=== PATIENT | male | born 1985 | race Caucasian/White ===

== ENCOUNTER 2016-02-18 21:23 | Emergency (ER) | payer OTHER ==
[~2016-02-18] VITALS: Ht 180.3 cm; Wt 122.2 kg
[~2016-02-18 21:23] MED LIST: HYDR-5688 PO; IBUP-1450 PO
[2016-02-18 21:26] VITALS: TEMP 37.1; Ht 180.3 cm; Wt 122.2 kg
--- NOTE | 2016-02-18 22:11 | DIAGNOSTIC IMAGING REPORT ---
LEFT SHOULDER MIN 2 VIEWS ROUTINE CLINICAL HISTORY: Fall. Left shoulder injury trauma. Pain. COMPARISON: None. DISCUSSION: The bones and joint spaces appear intact. There is no evidence of fracture, dislocation or bony disease. There is no evidence for soft tissue swelling. IMPRESSION: Negative study. Electronically signed by: Jarrett Parham M.D. 02/18/2016 10:10 PM
--- NOTE | 2016-02-18 22:12 | DIAGNOSTIC IMAGING REPORT ---
LEFT FOREARM 2 VIEWS ROUTINE CLINICAL HISTORY: Fall. Left forearm injury trauma. Pain. COMPARISON: None. DISCUSSION: The bones and joint spaces appear intact. There is no evidence of fracture, dislocation or bony disease. There is no evidence for soft tissue swelling. IMPRESSION: Negative study. Electronically signed by: Jarrett Parham M.D. 02/18/2016 10:10 PM
[2016-02-18 22:46] VITALS: BP 151/105; PULSE 113; O2SAT 95
--- NOTE | 2016-02-18 23:16 | EMERGENCY ROOM VISIT NOTE ---
History First contact with patient: 21:29 Chief Complaint: SHOULDER PAIN Stated Complaint: LEFT SHOULDER PAIN History of Present Illness The patient is a 30 year old male who presents to the Emergency Room with complaints of left shoulder and left forearm pain after falling yesterday. The patient was walking around the edge of a large flower box that had railroad ties around it. The patient states the ground was wet, and that he slipped in the mud, landing onto one of the railroad ties. The patient did not strike his head or lose consciousness. He landed primarily onto his left forearm, and then onto his left shoulder. He initially did not have significant pain, and has been able to utilize the extremity without difficulty. The patient states that he went to bed last evening, and has had worsening pain over the past one day. He has not taken anything [id number] for his symptoms. He does not have history of previous fracture or dislocation of the left upper extremity. He does not have other complaints. He rates his discomfort a 7/10. No paresthesias. Review of Systems More than 10 systems were reviewed and otherwise negative with the exception of history of present illness. Past Medical/Surgical History Medical Problems: (1) Back pain (2) Benign hypertension (3) Chronic back pain (4) Dental caries (5) Dental infection (6) Fall (7) Folliculitis (8) Left hip pain (9) Left hip pain (10) Leg pain, left (11) Leg pain, left (12) Low back pain with sciatica (13) Low back pain with sciatica (14) Lumbar strain (15) Odontalgia (16) Pain, dental (17) Strain of thoracic spine (18) Tonsillectomy Family History No pertinent family history Social History Smoking Status: Current Every Day Smoker Alcohol Use: occasionally Drug Use: none Marital Status: in relationship Housing Status: lives with family Occupation Status: employed Current/Historical Medications Scheduled PRN Hydrocodone/Acetaminophen 5MG/325MG ([place] 5MG/325MG), 1-2 TABLETS PO Q6 PRN for Pain Ibuprofen (Motrin), 600 MG PO DIRECTED PRN for Pain Allergies Coded Allergies: No Known Allergies (Verified , 02/18/16) Physical Exam Vital Signs Date Time Temp Pulse Resp B/P Pulse Ox O2 Delivery O2 Flow Rate FiO2 02/18/16 22:46 113 16 151/105 95 02/18/16 21:26 37.1 130 18 172/101 98 Room Air Pain Rating (0-10): 6.0 Physical Exam VITALS: Vitals are noted on the nurse's note and reviewed by myself. Vital signs stable. GENERAL: Well-developed, well-nourished, white male, who is in no acute distress and resting comfortably. Patient is cooperative with the examination. HEAD: Normocephalic atraumatic. NECK: Supple without nuchal rigidity. No lymphadenopathy. No thyromegaly. Cervical spine is nontender. HEART: Regular rate and rhythm without murmurs gallops or rubs. LUNGS: Clear to auscultation bilaterally without wheezes, rales or rhonchi. No retractions or accessory muscle use. MUSCULOSKELETAL: Mild tenderness is appreciated over the left lateral clavicle into the lateral left deltoid. There is mild tenderness over the supraspinatus distribution. No ecchymosis or edema. The left elbow and left wrist are without tenderness. The patient has full sensation and range of motion distally. No snuffbox tenderness. There is mild tenderness over the proximal radius. Strength of the extremity is 5/5 with full range of motion. NEURO: Patient was alert and oriented to person place and time. CN II through XII grossly intact. Medical Decision & Procedures ER Provider Diagnostic Interpretation: LEFT FOREARM 2 VIEWS ROUTINE CLINICAL HISTORY: Fall. Left forearm injury trauma. Pain. COMPARISON: None. DISCUSSION: The bones and joint spaces appear intact. There is no evidence of fracture, dislocation or bony disease. There is no evidence for soft tissue swelling. IMPRESSION: Negative study. LEFT SHOULDER MIN 2 VIEWS ROUTINE CLINICAL HISTORY: Fall. Left shoulder injury trauma. Pain. COMPARISON: None. DISCUSSION: The bones and joint spaces appear intact. There is no evidence of fracture, dislocation or bony disease. There is no evidence for soft tissue swelling. IMPRESSION: Negative study. ED Course Physical exam and history were performed. Nursing notes and EMR were reviewed. Patient appears to have suffered a fall yesterday with subsequent injury to his left shoulder and left forearm. On examination the patient has some mild tenderness but no significant deformity or neurologic deficit. X-rays were performed of the left shoulder and left forearm, and do not show acute findings. Overall the patient does appear stable for discharge home. He will be given information for conservative measures and instructions to follow with orthopedics with any ongoing or persistent symptoms. He was otherwise invited back to the ER with any new, worsening, or concerning symptoms. The chart was completed utilizing [employer] Speech Voice Recognition Software. Grammatical errors, random word insertions, pronoun errors, and incomplete sentences are an occasional consequence of this system due to software limitations, ambient noise, and hardware issues. Any formal questions or concerns about the content, text, or information contained within the body of this dictation should be directly addressed to the provider for clarification. . Medical Decision Differential diagnosis includes, but is not limited to: Sprain, strain, fracture , dislocation, subluxation, contusion, and others Impression Primary Impression: Fall Additional Impressions: Injury of left forearm, Injury of left shoulder Departure Information Dispostion Home / Self-Care Condition GOOD Referrals Oliver Day D.O. Forms HOME CARE DOCUMENTATION FORM, IMPORTANT VISIT INFORMATION Patient Instructions A Signature Page, [facility] Additional Instructions You were seen and evaluated today on an emergency basis only. This is not a substitute for, or an effort to provide, complete comprehensive medical care. It is not possible to recognize and treat all injuries or illnesses in a single emergency department visit. For this reason it is recommended that you followup with orthopedics, Dr. Dya's office, with any ongoing or persistent symptoms. For baseline pain relief you may alternate ibuprofen and acetaminophen every 4 hours for pain control. Take 600 mg ibuprofen (Advil) and then 4 hours later take 1000 mg acetaminophen (Tylenol). Do not take more than 3000 mg acetaminophen in a single day. You are welcome to return to the emergency department anytime with new, worsening, or concerning symptoms.
== END 2016-02-18 22:46 | disposition home or self-care (01) ==
LOC: C.EDB 21:26 → C.EDD 22:46
DX: S59.912A Unspecified injury of left forearm, initial encounter (principal); S49.92XA Unspecified injury of left shoulder and upper arm, initial encounter; W19.XXXA Unspecified fall, initial encounter; F17.200 Nicotine dependence, unspecified, uncomplicated; I10 Essential (primary) hypertension

== ENCOUNTER 2016-03-05 01:30 | Emergency (ER) | payer OTHER ==
[~2016-03-05] VITALS: Ht 180.3 cm; Wt 126.1 kg
[2016-03-05 01:32] VITALS: TEMP 36.8; Ht 180.3 cm; Wt 126.1 kg
[2016-03-05] MEDS ORDERED: AMOXICILLIN 500 MG CAP PO STA (01:42)
[2016-03-05] MEDS ORDERED: OXYCODONE IR HOME PACK PO ONE (01:45)
[2016-03-05] MEDS ORDERED: AMOX500C3 PO (01:46)
[2016-03-05] MEDS ORDERED: OXYC1TAB3 PO (01:46)
[2016-03-05] MEDS ORDERED: AMOXICILLIN 250 MG CAP PO ONE (01:58)
[2016-03-05 02:09] VITALS: BP 160/104; PULSE 94; O2SAT 96
--- NOTE | 2016-03-05 04:57 | EMERGENCY ROOM VISIT NOTE ---
History First contact with patient: 01:35 Chief Complaint: DENTAL PAIN Stated Complaint: INFECTION ON ROOF OF MOUTH Nursing Triage Summary: left upper dental pain. "bubble under the roof of my mouth". started this am. History of Present Illness The patient is a 30 year old male who presents to the Emergency Room with complaints of left upper dental pain for the past day. Patient has poor dentition. He sees [facility]. Patient denies chest pain, dyspnea, fever , chills, nausea, vomiting, diarrhea, neck stiffness, dysphagia, facial swelling. He is tolerated by mouth fluids and food. Review of Systems See HPI for pertinent positives & negatives. A total of 10 systems reviewed and were otherwise negative. Past Medical/Surgical History Medical Problems: (1) Back pain (2) Benign hypertension (3) Chronic back pain (4) Dental caries (5) Dental infection (6) Fall (7) Folliculitis (8) Left hip pain (9) Left hip pain (10) Leg pain, left (11) Leg pain, left (12) Low back pain with sciatica (13) Low back pain with sciatica (14) Lumbar strain (15) Odontalgia (16) Pain, dental (17) Strain of thoracic spine (18) Tonsillectomy Social History Smoking Status: Current Every Day Smoker Alcohol Use: occasionally Drug Use: none Marital Status: in relationship Housing Status: lives with family Occupation Status: employed Current/Historical Medications Scheduled Amoxicillin (Amoxil), 500 MG PO TID Scheduled PRN Hydrocodone/Acetaminophen 5MG/325MG ([place] 5MG/325MG), 1-2 TABLETS PO Q6 PRN for Pain Ibuprofen (Motrin), 600 MG PO DIRECTED PRN for Pain Oxycodone Immediate Rel Tab (Roxicodone Ir), 1-2 TAB PO Q4H PRN for Severe Pain Allergies Coded Allergies: No Known Allergies (Verified , 02/18/16) Physical Exam Vital Signs Date Time Temp Pulse Resp B/P Pulse Ox O2 Delivery O2 Flow Rate FiO2 03/05/16 02:09 94 20 160/104 96 03/05/16 01:32 36.8 104 20 158/86 97 Room Air Pain Rating (0-10): 0 Physical Exam VITALS: Vitals are noted on the nurse's note and reviewed by myself. Vital signs hypertensive GENERAL: Pleasant male with tobacco odor, in no acute distress, nondiaphoretic, well-developed well-nourished. SKIN: The skin was without rashes, erythema, edema, or bruising. There is no tenting of the skin. Capillary reflex less than 2 seconds. HEAD: Normocephalic atraumatic. EARS: External auditory canals clear, tympanic membranes pearly mancilla without erythema or effusion bilaterally. EYES: Pupils equal round and reactive to light and accommodation. Conjunctivae without injection, sclerae without icterus. Extraocular movements intact. NOSE: Patent, turbinates without inflammation or discharge. No sinus tenderness. MOUTH: Mucous membranes moist. Pharynx without erythema or exudate. Uvula midline. Airway patent. Tongue does not deviate. No signs of Oracio angina Dental exam: Multiple missing teeth, left upper first molar with extensive dental decay with minimal gum swelling with no palpable abscess overall dental hygiene poor NECK: Supple without nuchal rigidity. No lymphadenopathy. No thyromegaly. Cervical spine is nontender. No JVD. No meningeal signs HEART: Regular rate and rhythm without murmurs gallops or rubs. LUNGS: Clear to auscultation bilaterally without wheezes, rales or rhonchi. No dullness to percussion. No retractions or accessory muscle use. ABDOMEN: Positive bowel sounds x 4. Normal tympanic percussion. Soft, nontender, without masses or organomegaly. Shah sign negative. No guarding or rebound tenderness. MUSCULOSKELETAL: No muscle atrophy, erythema, or edema noted. NEURO: Patient was alert and oriented to person place and time. Normal sensation to light and sharp touch. No focal neurological deficits. Medical Decision & Procedures Medications Administered Medications (Trade) Dose Ordered Sig/Santiago Route Start Time Stop Time Status Last Admin Dose Admin Oxycodone HCl (Roxicodone Immediate Rel 5MG Home Pack) 1 homepack UD ONCE PO 03/05/16 01:45 03/05/16 01:46 DC 03/05/16 02:06 1 HOMEPACK Amoxicillin (Amoxil Cap) 1,000 mg STK-MED ONCE PO 03/05/16 01:58 03/05/16 01:59 DC 03/05/16 02:06 1,000 MG ED Course Prior records reviewed and summarized as above. Triage Nursing notes reviewed. The patient's history was concerning for dental pain Differential diagnosis: Etiologies such as cellulitis, abscess, gingivitis, Oracio angina as well as others were entertained.. Physical examination: The physical examination was consistent with dental pain from dental caries ER treatment provided: Amoxicillin, OxyIR On reassessment the patient felt better. Diagnostics interpreted by me: Deferred This appears to be dental pain and dental caries. Patient was counseled on proper dental hygiene. He was started on antibiotics. He was advised to follow -up with dentistry for definitive care here in the ER sooner for high fevers, facial swelling, neck stiffness, worsening signs or symptoms or as needed. He was advised to monitor his blood pressure. He had no signs of Oracio angina on exam. He was well-appearing.. By the evaluation outlined above emergent etiologies such as abscess, Oracio angina, as well as others were deemed relatively unlikely. The pt informed about the findings as listed above. All questions were answered and pleased with the treatment. Return instructions were outlined and the patient was discharged in stable condition. Outpatient prescription management: Amoxicillin, OxyIR Referral: The patient was referred back to dentistry for follow-up in 2 to 3 days for a recheck of the current condition. Medical Decision As above [place] Drug Monitoring Program Search Results: patient reviewed within database, no issues identified Impression Primary Impression: Pain, dental Additional Impression: Dental caries Departure Information Dispostion Home / Self-Care Condition GOOD Prescriptions Oxycodone Immediate Rel Tab (ROXICODONE IR) 5 Mg Tab 1-2 TAB PO Q4H Y for Severe Pain, #15 TAB Prov: Romi Erazo .AGUSTIN 03/05/16 Amoxicillin (AMOXIL) 500 Mg Cap 500 MG PO TID for 10 Days, #30 CAP Prov: Romi Erazo .AGUSTIN 03/05/16 Forms HOME CARE DOCUMENTATION FORM, IMPORTANT VISIT INFORMATION Patient Instructions [facility], [facility] Additional Instructions Amoxicillin 500mg: Take one pill 3 times daily for 10 days for your infection. All antibiotics can cause diarrhea. If this occurs and you feel worse or it does not resolve in 1-2 days follow up with your doctor or return to the Emergency Department as this could be signs of serious underlying problems. Any medication can cause an allergic reaction, stop the pills immediately and return to the ER for rash, hives, breathing difficulties, or swelling. Oxycodone (OxyIR) 5mg: Take 1-2 pills every four hours for breakthrough pain. Avoid alcohol, operating machinery or dangerous equipment, working on ladders or roofs, DRIVING, or situations where being under the influence may be dangerous. It is recommended to use an brfq-[id number] stool softener such as Colace, 100mg twice daily while taking this medication to avoid constipation. Ibuprofen(Motrin, Advil) may be used for fever or pain. Use 600mg every six hours as needed. Take with food. Avoid using more than 2400mg in a 24 hour period. Do not use 2400mg per day for more than three consecutive days without physician direction. Prolonged inappropriate use can lead to stomach upset or ulcers. This medication can be taken if you need to drive, work, or perform activities which may be dangerous when taking narcotic pain medication. (AND/OR) Acetaminophen(Tylenol) may be used for fever or pain. Use 1000mg every six hours as needed. Avoid using more than 3000mg in a 24 hour period. This medication can be taken if you need to drive, work, or perform activities which may be dangerous when taking narcotic pain medication. [place] teeth twice a day, floss daily and do warm saltwater gargles 3 times a day. See a dentist as soon as possible for definitive care for your dental problem. Return to ER sooner for facial swelling, fever, redness, worsening signs or symptoms or as needed. Problem Qualifiers
== END 2016-03-05 02:14 | disposition home or self-care (01) ==
LOC: C.EDB 01:31
DX: K08.89 Other specified disorders of teeth and supporting structures (principal); K02.9 Dental caries, unspecified; F17.200 Nicotine dependence, unspecified, uncomplicated; I10 Essential (primary) hypertension; G89.29 Other chronic pain; M54.9 Dorsalgia, unspecified

== ENCOUNTER 2016-07-24 17:24 | Emergency (ER) | payer OTHER ==
[~2016-07-24] VITALS: Ht 180.3 cm; Wt 121.4 kg
[~2016-07-24 17:24] MED LIST changes: +OXYC1TAB3 PO
[2016-07-24 17:32] VITALS: Ht 180.3 cm; Wt 121.4 kg
[2016-07-24] MEDS ORDERED: PROPARACAINE HCL 0.5% OP SOLN 15 ML BTL OP STA (17:57)
[2016-07-24] MEDS ORDERED: AMLO-110 PO (18:11)
[2016-07-24] MEDS ORDERED: ERYOPO OPR (19:27)
--- NOTE | 2016-07-24 19:34 | EMERGENCY ROOM VISIT NOTE ---
ED Visit Note First contact with patient: 17:46 CHIEF COMPLAINT: Red, irritated eye HISTORY OF PRESENT ILLNESS: This 30-year-old male presents to the emergency department complaining of redness in the right eye which has gradually increased since Thursday. Mild constant pain, burning in nature, which is rated as 10/10. There is watery discharge from the right eye and the lids are crusted in the morning. No difficulty with vision. The patient not wear contacts. There is no known trauma to the eye. The patient has not had any other upper respiratory symptoms. The left eye is normal. The patient does not have a foreign body sensation. Patient states he was pressure washing his house Thursday evening, so wonders if he could've gotten dirty water in the eye. He denies experiencing discomfort, or foreign body sensation Thursday evening. No headache, rash, nausea or vomiting. Patient was seen earlier this week at an urgent care and prescribed tobramycin drops. He has been using these drops as prescribed, and he states he feels that his discomfort is worsening. Redness has not improved. He has also been using hot/cold compresses, and wearing sunglasses due to sensitivity to light. He did take 800 mg ibuprofen around 8: 00 this morning with minimal improvement in discomfort. REVIEW OF SYSTEMS: A 6 system review of systems was completed with positives and pertinent negatives in the HPI. ALLERGIES: None MEDICATIONS: Norvasc, which he has been out of for 2 days PMH: Hypertension SOCIAL HISTORY: Patient lives locally with his family. He admits to smoking one half pack cigarettes per day, reports occasional alcohol use, denies drug use. PHYSICAL EXAM: Vital Signs: Reviewed Nurse's notes, vital signs stable, patient is not febrile. GENERAL: 30-year-old male, in no acute distress, well-developed , well-nourished. SKIN: Warm, dry. No cyanosis. No petechia. EYES: Both pupils are equal round and reactive to light and accomadation, EOMs intact. There is watery discharge in the right eye and moderate injection. There is no foreign body of the eyelid with lid eversion. Fundoscopic exam reveals no hemorrages, papiledema, or other abnormalities. No foreign body on the cornea, no hyphema. No uptake of flourescein visible with UV light. No corneal abrasion and no corneal ulcer. Visual Accuity is 20/20 right and 20/20 left without correction. EMERGENCY DEPARTMENT COURSE: I examined the patient. A slit lamp exam was performed and is as described above. Two drops of Ciloxin were put in the right eye and the patient was instructed as noted below. The patient was discharged home in good condition. DIAGNOSIS: Acute conjunctivitis DISCHARGE INSTRUCTIONS: You have been prescribed Erythromycin Opthalmic ointment. This is an antibiotic ointment which will help treat the acute and help prevent an infection from developing in your affected eye. You should apply a 1 cm ribbon of the ointment to the lower part of the affected eye up to 6 times per day for the next 10 days. I suspect this is a an acute conjunctivitis, related to getting dirty water in your eye while pressure washing on Thursday. Also considered sensitivity to Tobramycin drops. Please discontinue the use of these drops. Use the erythromycin ointment until you're able to follow up with ophthalmology. Recommend follow-up with ophthalmology in 1-2 days for further evaluation and management of your infection. Follow-up sooner in the emergency department if you experience increased redness , purulent drainage, swelling or redness surrounding the eye, fever, chills, nausea, vomiting. Problem List Medical Problems: (1) Back pain Status: Resolved (2) Benign hypertension Status: Chronic (3) Chronic back pain Status: Chronic (4) Dental caries Status: Chronic (5) Dental infection Status: Chronic (6) Fall Status: Resolved (7) Folliculitis Status: Resolved (8) Left hip pain Status: Resolved (9) Left hip pain Status: Resolved (10) Leg pain, left Status: Resolved (11) Leg pain, left Status: Resolved (12) Low back pain with sciatica Status: Resolved (13) Low back pain with sciatica Status: Resolved (14) Lumbar strain Status: Resolved (15) Odontalgia Status: Chronic (16) Pain, dental Status: Resolved (17) Strain of thoracic spine Status: Resolved (18) Tonsillectomy Status: Resolved Current/Historical Medications Scheduled Amlodipine (Norvasc), 5 MG PO DAILY Erythromycin Opth (Erythromycin Opth), 1 CM OPR Q4 Allergies Coded Allergies: No Known Allergies (Verified , 07/24/16) Vital Signs Date Time Temp Pulse Resp B/P (MAP) Pulse Ox O2 Delivery O2 Flow Rate FiO2 07/24/16 17:32 36.9 119 17 159/90 95 Room Air Medications Administered Medications (Trade) Dose Ordered Sig/Santiago Route Start Time Stop Time Status Last Admin Dose Admin Proparacaine HCl (Alcaine 0.5% Oph Soln) 2 drops NOW STAT OP 07/24/16 17:57 07/24/16 17:59 DC 07/24/16 18:06 2 DROPS Departure Information Impression Primary Impression: Conjunctivitis Dispostion Home / Self-Care Condition GOOD Prescriptions Erythromycin Opth (ERYTHROMYCIN OPTH) 12 Appln/3.5 Gm Oint 1 CM OPR Q4 for eye infection for 7 Days, #1 TUBE Prov: Ani Walker PA-C 07/24/16 Referrals No Doctor, Assigned (PCP) Patient Instructions My [facility] Additional Instructions You have been prescribed Erythromycin Opthalmic ointment. This is an antibiotic ointment which will help treat the acute and help prevent an infection from developing in your affected eye. You should apply a 1 cm ribbon of the ointment to the lower part of the affected eye up to 6 times per day for the next 10 days. I suspect this is a an acute conjunctivitis, related to getting dirty water in your eye while pressure washing on Thursday. Also considered sensitivity to Tobramycin drops. Please discontinue the use of these drops. Use the erythromycin ointment until you're able to follow up with ophthalmology. Recommend follow-up with ophthalmology in 1-2 days for further evaluation and management of your infection. Follow-up sooner in the emergency department if you experience increased redness , purulent drainage, swelling or redness surrounding the eye, fever, chills, nausea, vomiting. Problem Qualifiers Primary Impression: Conjunctivitis Conjunctivitis type: acute Acute conjunctivitis type: bacterial Laterality : right Qualified Codes: H10.31 - Unspecified acute conjunctivitis, right eye
[2016-07-24 20:52] VITALS: BP 140/80; PULSE 100; TEMP 36.9; O2SAT 98
== END 2016-07-24 20:54 | disposition home or self-care (01) ==
LOC: C.EDB 17:24 → C.EDD 20:54
DX: H10.31 Unspecified acute conjunctivitis, right eye (principal); I10 Essential (primary) hypertension; Z79.899 Other long term (current) drug therapy; Z87.898 Personal history of other specified conditions; F17.200 Nicotine dependence, unspecified, uncomplicated

== ENCOUNTER 2016-11-19 18:31 | Emergency (ER) | payer OTHER ==
[~2016-11-19] VITALS: Ht 180.3 cm; Wt 120.9 kg
[~2016-11-19 18:31] MED LIST changes: +AMLO-110 PO; +ERYOPO OPR; -HYDR-5688 PO; -IBUP-1450 PO; -OXYC1TAB3 PO
[2016-11-19 19:00] VITALS: TEMP 37; Ht 180.3 cm; Wt 120.9 kg
--- NOTE | 2016-11-19 21:26 | DIAGNOSTIC IMAGING REPORT ---
ABDOMEN 2VIEW W/PA CHEST RTN HISTORY: 31 years-old Male lower abd pain acute lower abdominal pain. Initial exam. COMPARISON: CT abdomen and pelvis 02/13/2012 TECHNIQUE: Frontal view of the chest with erect and supine views of the abdomen FINDINGS: Cardiomediastinal and hilar silhouettes are within normal limits. There is no pneumothorax, pleural effusion, focal airspace consolidation or overt pulmonary edema. Bones of the chest are grossly intact. No pneumoperitoneum identified. The bowel gas pattern is nonobstructive. No organomegaly, urolith or fracture identified. IMPRESSION: 1. No acute cardiopulmonary process. 2. Nonobstructive bowel gas pattern without pneumoperitoneum. 3. No urolith. The above report was generated using voice recognition software. It may contain grammatical, syntax or spelling errors. Electronically signed by: Yogi Tejeda M.D. 11/19/2016 9:25 PM Dictated Date/Time: 11/19/2016 9:23 PM
[2016-11-19 22:06] LABS: BASO % 0.1 %; BASO ABS # 0.02 K/uL (0-0.2); COMPLETE YES; EOS % 1.3 %; HEMATOCRIT 47.8 % (42-52); IG% 0.3 %; LYMPH % 21.3 %; LYMPH ABS # 2.85 K/uL (1.2-3.4); MEAN CELL VOLUME 85.2 fL (80-100); MEAN CORPUSCULAR HGB CONC 32.8 g/dl (32-36); MEAN PLATELET VOLUME 9.1 fL (7.4-10.4); MONO % 5.4 %; NEUT % 71.6 %; PLATELET COUNT 365 K/uL (130-400); RED BLOOD COUNT 5.61 M/uL (4.7-6.1)
[2016-11-19 22:15] LABS: MANUAL MICROSCOPIC REQUIRED? NO; URINE APPEARANCE CLEAR (CLEAR); URINE BILIRUBIN NEG (NEG); URINE COLOR YELLOW; URINE NITRITE NEG (NEG); URINE PH 5.5 (4.5-7.5); URINE SPECIFIC GRAVITY 1.025 (1.000-1.030); UROBILINOGEN NEG (NEG)
[2016-11-19 22:23] LABS: BUN/CREATININE RATIO 9.8 (10-20); CALCIUM 9.3 mg/dl (8.5-10.1); POTASSIUM 3.7 mmol/L (3.5-5.1)
[2016-11-19 22:25] LABS: REVIEW REQ? NO
[2016-11-19 22:26] LABS: ALB/GLOB RATIO 0.8 (0.9-2)
--- NOTE | 2016-11-19 23:27 | DIAGNOSTIC IMAGING REPORT ---
ABD/PELVIS NO IV OR ORAL CONT HISTORY: 31 years-old Male lower abd pain acute lower abdominal pain. Initial exam. COMPARISON: CT 02/13/2012 TECHNIQUE: Multiple axial CT images of the abdomen and pelvis were obtained without contrast. A dose lowering technique was used consistent with the principals of CRISTOBAL. FINDINGS: Mild dependent bibasilar atelectasis. No pneumoperitoneum identified. The imaged inferior cardiac chambers are unremarkable. Hepatomegaly is noted with areas of geographic fatty infiltration. Spleen, pancreas, gallbladder and adrenal glands are within normal limits. Kidneys, ureters, urinary bladder and prostate are unremarkable. The abdominal aorta is normal in course and caliber. No bulky adenopathy. There is no bowel obstruction. Moderate wall thickening with surrounding inflammatory stranding involves the mid sigmoid colon where there is a focally inflamed diverticulum draining hyperattenuating material seen on image 365 series 3. No abscess or evidence of perforation. The appendix is normal. Soft tissues are unremarkable. Symmetric erosions involve the bilateral sacroiliac joints. Additionally, there is increased sclerosis involving the anterosuperior endplates of the thoracic spine and upper lumbar spine, seen most prominently at the T9-L1 levels, nicely demonstrated on the sagittal images. IMPRESSION: 1. Findings suggest acute uncomplicated sigmoid diverticulitis. 2. Symmetric erosions of the bilateral sacroiliac joints are noted in addition to increased sclerosis involving the anterosuperior endplates of the thoracic and upper lumbar spine, notably at T9-L1. Constellation of findings is very suspicious for ankylosing spondylitis with reactive sclerosis of the vertebral bodies (Romanus lesions). 3. Hepatomegaly with geographic fatty infiltration of the liver. The above report was generated using voice recognition software. It may contain grammatical, syntax or spelling errors. Electronically signed by: Yogi Tejeda M.D. 11/19/2016 11:26 PM Dictated Date/Time: 11/19/2016 11:18 PM
[2016-11-19] MEDS ORDERED: METRONIDAZOLE 250 MG TAB PO STA (23:37)
[2016-11-19] MEDS ORDERED: CIPROFLOXACIN 500 MG TAB PO STA (23:37)
--- NOTE | 2016-11-19 23:37 | EMERGENCY ROOM VISIT NOTE ---
History Report prepared by Jeri: Tate Payton Under the Supervision of: Dr. Urvashi Bledsoe D.O. First contact with patient: 20:09 Chief Complaint: CONSTIPATION Stated Complaint: LOWER BELLY PAIN/WAIST LINE SHARP PAIN Nursing Triage Summary: no bm for several days. took laxatives without results. +nausea. lower abdominal pain. History of Present Illness The patient is a 31 year old male who presents to the Emergency Room with complaints of constant lower abdominal pain for the past day and a half. He describes it as a sharp pain when walking around and as a pressure when his abdomen is pushed. Patient states that he feels bloated. He states that his pain stays in his abdomen and that he has no pain in his back. He denies pain anywhere else or pain when he changes position. He also denies nausea or changes in his urine. He states that he rarely passes gas. Patient states that he gets hot and cold flashes. Pt has been constipated before but not like this. He took two laxatives yesterday and one today but denies any improvement. His last bowel movement was yesterday. He states that he drinks water regularly. The patient denies changes to his diet, or medications. Per friend, the patient exhibits IBS symptoms Source of History: patient Onset: A day and a half ago. Position: abdomen (Lower.) Quality: pressure, sharp Timing: constant Modifying Factors (Worsening): exertion Associated Symptoms: No back pain Note: Additional symptoms: abdominal bloating. Review of Systems See HPI for pertinent positives & negatives. A total of 10 systems reviewed and were otherwise negative. Past Medical & Surgical Medical Problems: (1) Back pain (2) Benign hypertension (3) Chronic back pain (4) Dental caries (5) Dental infection (6) Fall (7) Folliculitis (8) Left hip pain (9) Left hip pain (10) Leg pain, left (11) Leg pain, left (12) Low back pain with sciatica (13) Low back pain with sciatica (14) Lumbar strain (15) Odontalgia (16) Pain, dental (17) Strain of thoracic spine (18) Tonsillectomy Family History No pertinent family history stated. Social History Smoking Status: Current Every Day Smoker Alcohol Use: occasionally Drug Use: none Marital Status: in relationship Housing Status: lives with family Occupation Status: employed Current/Historical Medications Scheduled Ciprofloxacin Hcl (Cipro), 500 MG PO BID Dicyclomine Hcl (Bentyl), 20 MG PO TID Metronidazole (Flagyl), 500 MG PO TID Allergies Coded Allergies: No Known Allergies (Verified , 11/19/16) Physical Exam Vital Signs Date Time Temp Pulse Resp B/P (MAP) Pulse Ox O2 Delivery O2 Flow Rate FiO2 11/19/16 23:48 105 18 157/82 97 Room Air 11/19/16 22:36 115 18 153/93 99 Room Air 11/19/16 20:47 111 18 143/91 98 Room Air 11/19/16 19:00 37.0 125 20 135/82 96 Room Air Physical Exam GENERAL: alert, well appearing, well nourished, no distress, non-toxic EYE EXAM: normal conjunctiva, PERRL and EOM's grossly intact OROPHARYNX: no exudate, no erythema, lips, buccal mucosa, and tongue normal and mucous membranes are moist NECK: supple, no nuchal rigidity, no adenopathy, non-tender LUNGS: Clear to auscultation. Normal chest wall mechanics HEART: no murmurs, S1 normal and S2 normal ABDOMEN: mild lower abdominal tenderness, dull to percussion, no rebound or guarding. BACK: Back is symmetrical on inspection and there is no deformity, no midline tenderness, no CVA tenderness. SKIN: no rashes and no bruising UPPER EXTREMITIES: upper extremities are grossly normal. LOWER EXTREMITIES: No pitting edema. NEURO EXAM: Normal sensorium, cranial nerves II-XII grossly intact, normal speech, no gross weakness of arms, no gross weakness of legs. Medical Decision & Procedures ER Provider Diagnostic Interpretation: ABD/PELVIS NO IV OR ORAL CONT HISTORY: 31 years-old Male lower abd pain acute lower abdominal pain. Initial exam. COMPARISON: CT 02/13/2012 TECHNIQUE: Multiple axial CT images of the abdomen and pelvis were obtained without contrast. A dose lowering technique was used consistent with the principals of CRISTOBAL. FINDINGS: Mild dependent bibasilar atelectasis. No pneumoperitoneum identified. The imaged inferior cardiac chambers are unremarkable. Hepatomegaly is noted with areas of geographic fatty infiltration. Spleen, pancreas, gallbladder and adrenal glands are within normal limits. Kidneys, ureters, urinary bladder and prostate are unremarkable. The abdominal aorta is normal in course and caliber. No bulky adenopathy. There is no bowel obstruction. Moderate wall thickening with surrounding inflammatory stranding involves the mid sigmoid colon where there is a focally inflamed diverticulum draining hyperattenuating material seen on image 365 series 3. No abscess or evidence of perforation. The appendix is normal. Soft tissues are unremarkable. Symmetric erosions involve the bilateral sacroiliac joints. Additionally, there is increased sclerosis involving the anterosuperior endplates of the thoracic spine and upper lumbar spine, seen most prominently at the T9-L1 levels, nicely demonstrated on the sagittal images. IMPRESSION: 1. Findings suggest acute uncomplicated sigmoid diverticulitis. 2. Symmetric erosions of the bilateral sacroiliac joints are noted in addition to increased sclerosis involving the anterosuperior endplates of the thoracic and upper lumbar spine, notably at T9-L1. Constellation of findings is very suspicious for ankylosing spondylitis with reactive sclerosis of the vertebral bodies (Romanus lesions). 3. Hepatomegaly with geographic fatty infiltration of the liver. The above report was generated using voice recognition software. It may contain grammatical, syntax or spelling errors. Electronically signed by: Yogi Tejeda M.D. 11/19/2016 11:26 PM Laboratory Results 11/19/16 21:55 Red Blood Count 5.61, Mean Corpuscular Volume 85.2, Mean Corpuscular Hemoglobin 28.0, Mean Corpuscular Hemoglobin Concent 32.8, Mean Platelet Volume 9.1, Neutrophils (%) (Auto) 71.6, Lymphocytes (%) (Auto) 21.3, Monocytes (%) (Auto) 5.4, Eosinophils (%) (Auto) 1.3, Basophils (%) (Auto) 0.1, Neutrophils # (Auto) 9.59, Lymphocytes # (Auto) 2.85, Monocytes # (Auto) 0.72, Eosinophils # (Auto) 0.18, Basophils # (Auto) 0.02 11/19/16 21:55 Test 11/19/16 21:45 11/19/16 21:55 Urine Color YELLOW Urine Appearance CLEAR (CLEAR) Urine pH 5.5 (4.5-7.5) Urine Specific [place] 1.025 (1.000-1.030) Urine Protein NEG (NEG) Urine Glucose (UA) NEG (NEG) Urine Ketones NEG (NEG) Urine Occult Blood NEG (NEG) Urine Nitrite NEG (NEG) Urine Bilirubin NEG (NEG) Urine Urobilinogen NEG (NEG) Urine Leukocyte Esterase NEG (NEG) White Blood Count 13.40 K/uL (4.8-10.8) Red Blood Count 5.61 M/uL (4.7-6.1) Hemoglobin 15.7 g/dL (14.0-18.0) Hematocrit 47.8 % (42-52) Mean Corpuscular Volume 85.2 fL (80-100) Mean Corpuscular Hemoglobin 28.0 pg (25-34) Mean Corpuscular Hemoglobin Concent 32.8 g/dl (32-36) Platelet Count 365 K/uL (130-400) Mean Platelet Volume 9.1 fL (7.4-10.4) Neutrophils (%) (Auto) 71.6 % Lymphocytes (%) (Auto) 21.3 % Monocytes (%) (Auto) 5.4 % Eosinophils (%) (Auto) 1.3 % Basophils (%) (Auto) 0.1 % Neutrophils # (Auto) 9.59 K/uL (1.4-6.5) Lymphocytes # (Auto) 2.85 K/uL (1.2-3.4) Monocytes # (Auto) 0.72 K/uL (0.11-0.59) Eosinophils # (Auto) 0.18 K/uL (0-0.5) Basophils # (Auto) 0.02 K/uL (0-0.2) RDW Standard Deviation 41.0 fL (36.4-46.3) RDW Coefficient of Variation 13.2 % (11.5-14.5) Immature Granulocyte % (Auto) 0.3 % Immature Granulocyte # (Auto) 0.04 K/uL (0.00-0.02) Anion Gap 7.0 mmol/L (3-11) Est Creatinine Clear Calc Drug Dose 140.3 ml/min Estimated GFR () 114.9 Estimated GFR (Non- 99.1 BUN/Creatinine Ratio 9.8 (10-20) Calcium Level 9.3 mg/dl (8.5-10.1) Total Bilirubin 0.5 mg/dl (0.2-1) Aspartate Amino Transf (AST/SGOT) 19 U/L (15-37) Alanine Aminotransferase (ALT/SGPT) 45 U/L (12-78) Alkaline Phosphatase 138 U/L (45-117) Total Protein 8.6 gm/dl (6.4-8.2) Albumin 3.8 gm/dl (3.4-5.0) Globulin 4.8 gm/dl (2.5-4.0) Albumin/Globulin Ratio 0.8 (0.9-2) Lipase 96 U/L (73-393) Medications Administered Medications (Trade) Dose Ordered Sig/[place] Route Start Time Stop Time Status Last Admin Dose Admin Ciprofloxacin (Cipro Tab) 500 mg NOW STAT PO 11/19/16 23:37 11/19/16 23:39 DC 11/19/16 23:47 500 MG Metronidazole (Flagyl Tab) 500 mg NOW STAT PO 11/19/16 23:37 11/19/16 23:39 DC 11/19/16 23:47 500 MG Ketorolac Tromethamine (Toradol Inj) 30 mg NOW STAT IV 11/19/16 23:53 11/19/16 23:54 DC 11/19/16 23:57 30 MG Dicyclomine HCl (Bentyl Cap) 10 mg NOW ONCE PO 11/20/16 00:00 11/20/16 00:01 DC 11/19/16 23:57 10 MG ED Course 2010: The patient was evaluated in room C10. A complete history and physical exam was performed. 2345: Updated patient on all results. Medical Decision Differential diagnosis: Etiologies such as appendicitis, diverticulitis, PUD, biliary pathology, UTI, pancreatitis, obstruction, mesenteric ischemia, aortic pathology, infections, inflammatory bowel disease, renal colic, as well as others were entertained. Pt well appearing here despite complaints. Discussed all results. No perf/ abscess, no evidence of bacteremia/sepsis. Pt afebrile and tolerating po. Discussed antibiotics, f/u with PCP and with GI, need for colonoscopy after resolution, dietary changes, hydration, sx to watch/return for, he verbalized understanding and was agreeable with plan. Medication Reconcilliation Current Medication List: was personally reviewed by me Blood Pressure Screening Patient's blood pressure: Elevated blood pressure Blood pressure disposition: Elevated BP felt to be situational Impression Primary Impression: Abdominal pain Additional Impressions: Diverticulitis Constipation Scribe Attestation The scribe's documentation has been prepared under my direction and personally reviewed by me in its entirety. I confirm that the note above accurately reflects all work, treatment, procedures, and medical decision making performed by me. Departure Information Dispostion Home / Self-Care Prescriptions Metronidazole (FLAGYL) 500 Mg Tab 500 MG PO TID for 10 Days, #30 TAB Prov: Rakan Urvashi S., DO 11/20/16 Ciprofloxacin Hcl (CIPRO) 500 Mg Tab 500 MG PO BID, #20 TAB Prov: Urvashi Bledsoe, DO 11/20/16 Dicyclomine Hcl (BENTYL) 20 Mg Tab 20 MG PO TID for Pain, #20 TAB Prov: Urvashi Bledsoe, DO 11/20/16 Referrals No Doctor, Assigned (PCP) Patient Instructions My [facility] Additional Instructions Please take the antibiotics as prescribed until they are completed. Please eat a low fiber diet until you have completed the course of antibiotics. After that please resume a well-balanced high-fiber diet. Please follow up with her family doctor next week and then with GI. If you have any worsening pain, develop fevers or chills, vomiting, noticed blood with the bowel movement, or any other new concerns, please return the emergency room. Please consider the addition of a stool softener to help prevent any prolonged sitting or increased straining when having a bowel movement as this can contribute to the development of diverticulosis. Problem Qualifiers Primary Impression: Abdominal pain Abdominal location: lower abdomen, unspecified Qualified Codes: R10.30 - Lower abdominal pain, unspecified Additional Impressions: Diverticulitis Diverticulitis site: large intestine Diverticulitis bleeding: without bleeding Diverticulitis complication: without perforation or abscess Qualified Codes: K57.32 - Diverticulitis of large intestine without perforation or abscess without bleeding Constipation Constipation type: unspecified constipation type Qualified Codes: K59.00 - Constipation, unspecified
[2016-11-19 23:48] VITALS: BP 157/82; PULSE 105; O2SAT 97
[2016-11-19] MEDS ORDERED: KETOROLAC TROMETHAMINE 30 MG/ML VIAL IV STA (23:53)
[2016-11-20] MEDS ORDERED: DICY20TA35 PO
[2016-11-20] MEDS ORDERED: METR500T PO
[2016-11-20] MEDS ORDERED: CIPR-255 PO
[2016-11-20] MEDS ORDERED: DICYCLOMINE HCL 10 MG CAP PO ONE
== END 2016-11-20 00:07 | disposition home or self-care (01) ==
LOC: C.EDB 18:32 → C.EDC 11-20 00:07
DX: R10.30 Lower abdominal pain, unspecified (principal); K57.32 Diverticulitis of large intestine without perforation or abscess without bleeding; K59.00 Constipation, unspecified; I10 Essential (primary) hypertension; M54.9 Dorsalgia, unspecified; G89.29 Other chronic pain; F17.210 Nicotine dependence, cigarettes, uncomplicated

== ENCOUNTER 2023-08-04 09:08 | Inpatient (IN) ==
[2023-08-04] MEDS: dilTIAZem HCl 5 MG/ML 5 ML VIAL IV STA (09:30)
[2023-08-04] MEDS: SODIUM CHLORIDE 0.9% 1,000 ML IV ONE (09:31)
--- NOTE | 2023-08-04 09:32 | Emergency Department Note ---
Impression & Plan Atrial fibrillation with rapid ventricular response, Shortness of breath ED Provider Note NAME: JAYSON WHELAN AGE: 37 SEX: M : 1985 ARRIVES VIA: Walk-In INFORMANT: Patient ED PROVIDER(S): Audie Rooney DO CHIEF COMPLAINT: Palpitations HPI: Patient is a 38-year-old male with a past medical history of palpitations and some chest pounding which started about an hour prior to arrival. He notes he was at work and can feel his heart racing and beating irregularly. He did have some shortness of breath initially when it started. He has had this once before and it last for several seconds. Denies any headache or change in vision. No chest pain or shortness of breath. No nausea, vomiting, or diarrhea. No dysuria, urgency or frequency. ADDITIONAL HISTORY OBTAINED: Per HPI Chronic Medical/Social Conditions Affecting Care: Per HPI PAST MEDICAL HISTORY:See Below PAST SURGICAL HISTORY:See Below FAMILY HISTORY:See Below SOCIAL HISTORY:See Below HOME MEDICATIONS:See Below ALLERGIES:See Below VITALS:See Below PHYSICAL EXAMINATION: GENERAL: Sitting up in bed, alert, well appearing, well nourished, no distress, non-toxic EYE EXAM: normal conjunctiva. PERRL and EOM's grossly intact. OROPHARYNX: mucous membranes are moist NECK: supple, no nuchal rigidity, no adenopathy, non-tender LUNGS: Clear to auscultation. Normal chest wall mechanics HEART: Tachycardic and irregular regular, S1 normal and S2 normal ABDOMEN: abdomen soft, non-tender, normo-active bowel sounds, no masses, no rebound or guarding. UPPER EXTREMITIES: upper extremities are grossly normal. LOWER EXTREMITIES: No pitting edema. NEURO EXAM: Normal sensorium, cranial nerves II-XII grossly intact, normal speech, no gross weakness of arms, no gross weakness of legs. MEDICAL DECISION MAKING: Patient is a 37-year-old male who presents ER for palpitations accommodation with chest pain. IV was established blood work was obtained. Labs show mild leukocytosis of 10.8 thousand. No significant anemia. BMP with slightly elevated chloride at 108. LFTs bilirubin and magnesium was unremarkable. Initial troponin was negative. Chest x-ray was clean. EKG consistent with A- fib with RVR heart rate in the 170s. Was placed on Cardizem drip and bolus. He was given a bolus of 15 and placed on drip at 5 of Cardizem. 5 mg was titrated up to 10. Heart rate trended down to the low 1 teens. He was updated bedside discussed with the hospitalist for further evaluation management treatment. Consults/Care Managements Discussions: Per [facility] Triage Nursing notes reviewed. Limited review of prior medical records performed Vital Signs: reviewed and remarkable for HTN and tachy Differential diagnosis: Differential diagnoses includes but is not limited to gastritis, peptic ulcer disease, GERD, gallbladder disease, pancreatitis, small bowel obstruction, appendicitis, diverticulitis, hernia, urinary tract infection, torsion, perforation, trauma, infectious. ER treatment provided: See below Diagnostics interpreted by me include EKG and cardiac monitoring as listed below: -Cardiac Monitoring: An order was placed for continuous cardiac monitoring. The monitor shows a rate of 90 with sinus rhythm. -ECG: A-fib RVR rate of 166 Normal axis No PVCs ST depressions in the inferior and lateral leads QTc 422 -Laboratory studies:Interpreted by me as stated above in MDM and shown below. Imaging studies: Xrays: As interpreted by me: Portable AP upright 1 view of the chest shows no focal infiltrate CTs show: none Procedures:none Critical Care: I have personally spent 45 minutes of critical care time in the direct management of this patient. This includes bedside care, interpretation of diagnostic studies, and testing, discussion with consultants, patient, and family members, and other required patient management activities. This 45 minutes is in excess of all separately billable procedures. Past Med/Surg History Problem List (Updated 08/04/23 @ 13:53 by Audie Rooney DO) Shortness of breath (Acute) Atrial fibrillation with rapid ventricular response (Acute) No significant past medical history Encounter for screening laboratory testing for severe acute respiratory syndrome coronavirus 2 (SARS-CoV-2) in asymptomatic patient Elevated BP without diagnosis of hypertension Medical History Dental abscess Surgical History H/O tooth extraction Hx of tonsillectomy Family History Mother Ovarian cancer Denies family history of Prostate cancer Breast cancer Lung cancer Colorectal cancer Social History Smoking Status: Former smoker Tobacco Type: Cigarettes Age Started Using Tobacco: 14; packs per day: 0.5; Second Hand Exposure: No; Do You Dip or Chew Tobacco: No; Hx Alcohol Use: Yes Alcohol type: beer Alcohol Intake Frequency: Monthly or Less Hx Substance Use: No Preferred Language: Maltese Communication Ability: Effective Visual Impairment: No Limitations Hearing Ability: Normal Chemist Water Purification Required: No marital status: Single Current Living Situation: Family and Significant Other current occupational status: employed How many Children do You have: 4 Feels Safe at Home: Yes Childhood Exposure to Second-Hand Smoke: Yes caffeine: Yes Dental Care, Regularly: No Physical Activity Frequency: 3-4 Times per Week Seatbelt Use: always Sunscreen Use: No Allergies Allergies Allergy/AdvReac Type Severity Reaction Status Date / Time No Known Drug Allergies Allergy 0 Verified 08/04/23 11:35 Home Meds Home Medications Medication Instructions Recorded Confirmed aspirin 325 mg tablet 650 mg PO .TODAY 08/04/23 08/04/23 ibuprofen 200 mg tablet 600 mg PO TID PRN Pain 08/04/23 08/04/23 Results & Data (ED) Vital Signs Vital Signs - 24 hr 08/04/23 09:15 08/04/23 09:33 08/04/23 09:48 Temperature 36 C L Temperature Source Temporal Artery Scan Pulse Rate 92 H 163 H 131 H Pulse Rate [Apical] Pulse Rhythm Regular Pulse Strength Normal Respiratory Rate 20 18 Respiratory Effort / Characteristics Non-Labored Spontaneous Respiratory Depth Normal Respiratory Pattern Regular Blood Pressure 158/132 H Blood Pressure [Left Arm] Blood Pressure Mean 140 Blood Pressure Mean [Left Arm] Blood Pressure Position Sitting Blood Pressure Position [Left Arm] Pulse Oximetry 97 97 Oxygen Delivery Method Room Air Room Air Sepsis Recent Fever Within 48 Hours No Sepsis New/Unexplained Change in Mental Status No Sepsis Action Taken by Nursing No Action Required 08/04/23 09:48 08/04/23 10:02 08/04/23 11:57 Temperature Temperature Source Pulse Rate Pulse Rate [Apical] 114 H 123 H Pulse Rhythm Pulse Strength Respiratory Rate 18 20 Respiratory Effort / Characteristics Non-Labored Spontaneous Non-Labored Spontaneous Respiratory Depth Normal Normal Respiratory Pattern Regular Regular Blood Pressure Blood Pressure [Left Arm] 140/90 135/89 Blood Pressure Mean Blood Pressure Mean [Left Arm] 106 104 Blood Pressure Position Blood Pressure Position [Left Arm] Lying Lying Pulse Oximetry 97 96 97 Oxygen Delivery Method Room Air Room Air Room Air Sepsis Recent Fever Within 48 Hours Sepsis New/Unexplained Change in Mental Status Sepsis Action Taken by Nursing 08/04/23 12:28 08/04/23 13:30 Temperature Temperature Source Pulse Rate 102 H Pulse Rate [Apical] 98 H Pulse Rhythm Pulse Strength Respiratory Rate 20 18 Respiratory Effort / Characteristics Non-Labored Spontaneous Respiratory Depth Normal Respiratory Pattern Regular Blood Pressure Blood Pressure [Left Arm] 140/95 Blood Pressure Mean Blood Pressure Mean [Left Arm] 110 Blood Pressure Position Blood Pressure Position [Left Arm] Pulse Oximetry 98 96 Oxygen Delivery Method Room Air Room Air Sepsis Recent Fever Within 48 Hours Sepsis New/Unexplained Change in Mental Status Sepsis Action Taken by Nursing Laboratory Data 08/04/23 09:25 08/04/23 09:25 Lab Results 08/04/23 08/04/23 08/04/23 Range/Units 09:25 11:26 12:03 WBC 10.86 H (4.8-10.8) K/ul RBC 5.07 (4.70-6.10) M/uL Hgb 14.5 (14.0-18.0) g/dl Hct 43.7 (42.0-52.0) % MCV 86.2 (80.0-100.0) fL MCH 28.6 (25.0-34.0) pg MCHC 33.2 (32.0-36.0) g/dL RDW Std Deviation 40.0 (36.4-46.3) fL RDW Coeff of Celso 13.0 (11.5-14.5) % Plt Count 370 (130-400) K/uL MPV 9.1 L (9.4-12.4) fL Immature Gran % (Auto) 0.5 % Neut % (Auto) 65.5 % Lymph % (Auto) 27.1 % Stephens % (Auto) 4.4 % Eos % (Auto) 2.0 % Baso % (Auto) 0.5 % Neut # (Auto) 7.12 H (1.40-6.50) K/uL Lymph # (Auto) 2.94 (1.20-3.40) K/uL Stephens # (Auto) 0.48 (0.11-0.59) K/uL Eos # (Auto) 0.22 (0.00-0.50) K/uL Baso # (Auto) 0.05 (0.00-0.20) K/uL Immature Gran # (Auto) 0.05 (0.01-0.20) K/uL APTT 28 (21-31) Seconds PTT Ratio 1.0 Sodium 140 (136-145) mmol/L Potassium 3.8 (3.5-5.1) mmol/L Chloride 108 H (98-107) mmol/L Carbon Dioxide 26 (21-32) mmol/L Anion Gap 6 (3-11) BUN 15 (6-23) mg/dl Creatinine 0.76 (0.6-1.4) mg/dl Est Cr Clr Drug Dosing 187.0 ml/min Est GFR ( Amer) 134.1 ml/min Est GFR (Non-Af Amer) 115.7 ml/min BUN/Creatinine Ratio 19.7 (10-20) Glucose 135 H (70-99(Fasting)) mg/dl Calcium 9.0 (8.6-10.3) mg/dl Magnesium 2.0 (1.7-2.4) mg/dl Total Bilirubin 0.3 (0.2-1.0) mg/dl AST 33 (13-39) U/L ALT 81 H (7-52) U/L Alkaline Phosphatase 89 (34-104) U/L Troponin I High Sens 11.6 28.0 H D (0-20) pg/ml Total Protein 7.8 (6.0-8.3) gm/dl Albumin 4.3 (3.4-5.0) gm/dl Globulin 3.5 (2.5-4.0) gm/dl Albumin/Globulin Ratio 1.2 (0.9-2) Lipase 20 (11-82) U/L TSH 1.637 (0.300-4.500) uIu/ml Urine Opiates Screen Pos H (Neg) Ur Methadone, Qual Neg (Neg) Urine Fentanyl Screen Neg (Neg) Urine Barbiturates Neg (Neg) Ur Phencyclidine (PCP) Neg (Neg) U Amphetamin/Meth Scrn Neg (Neg) MDMA (Ecstasy) Screen Neg (Neg) U Benzodiazepines Scrn Neg (Neg) Ur Cocaine Metabolite Neg (Neg) U Marijuana (THC) Screen Neg (Neg) Administered Medications Diltiazem HCl 125 mg/ Dextrose 125 mls @ 10 mls/hr IV .[id number] [facility]; Protocol Stop: 09/03/23 09:29 Last Titration: 08/04/23 12:05 Dose: 15 mg/hr, 15 mls/hr Documented By: OTONIEL Co-signed By: NBA Titration: 08/04/23 10:35 Dose: 10 mg/hr, 10 mls/hr Documented By: CC Co-signed By: OTONIEL Admin: 08/04/23 09:45 Dose: 5 mg/hr, 5 mls/hr Documented By: MARSHA Co-signed By: OTONIEL Heparin Sodium/Dextrose (Heparin Sodium/Dextrose) 25,000 units in 500 mls @ 20 mls/hr IV .Q24H [facility]; Protocol Stop: 09/03/23 10:59 Last Admin: 08/04/23 12:04 Dose: 1,000 units/hr, 20 mls/hr Documented By: OTONIEL Co-signed By: NBA Discontinued Medications Diltiazem HCl (Diltiazem Hcl 5 Mg/Ml 5 Ml Vial) 15 mg IV NOW STA Stop: 08/04/23 09:26 Last Admin: 08/04/23 09:30 Dose: 15 mg Documented By: MARSHA Co-signed By: OTONIEL Heparin Sodium (Porcine) (Heparin Sod (Porcine) 1000 Unit/Ml) 4,000 units IV NOW ONE Stop: 08/04/23 11:00 Last Admin: 08/04/23 12:03 Dose: 4,000 units Documented By: OTONIEL Co-signed By: NBA Sodium Chloride (Nss) 1,000 mls @ 999 mls/hr IV .Q1H1M ONE Stop: 08/04/23 10:25 Last Infusion: 08/04/23 12:08 Dose: Infused Documented By: Admin: 08/04/23 09:31 Dose: 999 mls/hr Documented By: MARSHA Imaging Data Radiologist's Impression: Chest X-Ray 08/04/23 09:25 XR chest 1V portable HISTORY: 37 years-old Male Chest pain, nonspecific COMPARISON: 11/19/2016 TECHNIQUE: AP view of the chest FINDINGS: Cardiac silhouette is mildly enlarged. No pneumothorax, or pleural effusion. The lungs are clear. Bones appear intact. IMPRESSION: No acute process. ACT 112: Negative or not required by law. The above report was generated using voice recognition software. It may contain grammatical, syntax or spelling errors. Electronically signed by: Zaid Tejeda M.D. 08/04/2023 10:33 AM Discharge Plan Visit Data Chief Complaint: Arrhythmia/Palpitations Stated Complaint: fast heart rate ED Provider: Audie Rooney Discharge Problem: Atrial fibrillation with rapid ventricular response, Shortness of breath Forms Stand Alone Forms: My [facility] Prescriptions Prescriptions: No Action aspirin 325 mg Tablet 650 mg PO .TODAY ibuprofen 200 mg Tablet 600 mg PO TID PRN (Reason: Pain) Referrals Referrals: Marek Richard DO [Primary Care Provider] -
[2023-08-04 09:45] LABS: Basophils # (auto) 0.05 K/uL (0.00-0.20); Basophils % (auto) 0.5 %; Eosinophils # (auto) 0.22 K/uL (0.00-0.50); Hematocrit (blood only) 43.7 % (42.0-52.0); Hemoglobin 14.5 g/dl (14.0-18.0); Immature Granulocytes # (auto) 0.05 K/uL (0.01-0.20); Immature Granulocytes % (auto) 0.5 %; Lymphocytes # (auto) 2.94 K/uL (1.20-3.40); Lymphocytes % (auto) 27.1 %; Mean Corpuscular Hemoglobin 28.6 pg (25.0-34.0); Mean Corpuscular Hgb Conc 33.2 g/dL (32.0-36.0); Mean Corpuscular Volume 86.2 fL (80.0-100.0); Mean Platelet Volume 9.1 fL (9.4-12.4); Monocytes # (auto) 0.48 K/uL (0.11-0.59); Monocytes % (auto) 4.4 %; Neutrophils # (auto) 7.12 K/uL (1.40-6.50); Neutrophils % (auto) 65.5 %; Platelet Count 370 K/uL (130-400); Red Blood Count 5.07 M/uL (4.70-6.10); White Blood Count 10.86 K/ul (4.8-10.8)
[2023-08-04] MEDS: dilTIAZem HCL 125 MG in DEXTROSE 5% 100 ML IV SCH (09:45)
[2023-08-04 09:59] LABS: Albumin Globulin Ratio 1.2 (0.9-2); Albumin Level 4.3 gm/dl (3.4-5.0); BUN Creatinine Ratio 19.7 (10-20); Bilirubin,Total 0.3 mg/dl (0.2-1.0); Est GFR (African American) 134.1 ml/min; Est GFR (Non-African American) 115.7 ml/min; Globulin 3.5 gm/dl (2.5-4.0); Potassium 3.8 mmol/L (3.5-5.1); Total Protein 7.8 gm/dl (6.0-8.3)
[2023-08-04 10:05] LABS: Troponin I High Sensitivity 11.6 pg/ml (0-20)
--- NOTE | 2023-08-04 10:34 | XRay Report ---
XR chest 1V portable HISTORY: 37 years-old Male Chest pain, nonspecific COMPARISON: 11/19/2016 TECHNIQUE: AP view of the chest FINDINGS: Cardiac silhouette is mildly enlarged. No pneumothorax, or pleural effusion. The lungs are clear. Bon es appear intact. IMPRESSION: No acute process. ACT 112: Negative or not required by law. The above report was generated using voice recognition software. It may contain grammatical, syntax o r spelling errors. Electronically signed by: Zaid Tejeda M.D. 08/04/2023 10:33 AM
[2023-08-04] MEDS ORDERED: Heparin IV Adult Wt-Based Low-Dose w/ INITIAL Bolus Protocol IV SCH (10:47)
[2023-08-04] MEDS ORDERED: ACETAMINOPHEN 325 MG TAB PO PRN (11:04)
[2023-08-04] MEDS ORDERED: ONDANSETRON INJ 2 MG/ML 2 ML VIAL IV PRN (11:04)
--- NOTE | 2023-08-04 11:13 | History & Physical Report ---
Date of Service August 04, 2023 Assessment & Plan (1) Atrial fibrillation with rapid ventricular response: Plan: Assessment: 1. New onset atrial fibrillation with rapid ventricular response. Patient received 1 dose of IV Cardizem and placed on a drip in the ER. His rate has improved from 160s down to 120s to 130s. Will continue the Cardizem drip. Will commence the patient on a heparin drip for anticoagulation through the day and evening. After echocardiogram, the patient will be switched over to oral anticoagulation as deemed appropriate pending echocardiogram results. We will check serial troponins. Will check a TSH. Will check a magnesium level. In addition we have counseled the patient on alcohol consumption nicotine consumption and caffeine consumption please refer to my HPI above. In addition I suspect the patient has underlying sleep apnea which could be a contributing factor. Will do a nocturnal pulse ox but we do recommend outpatient formal sleep study arranged by his PCP upon discharge. In addition we will order a urine drug screen for completeness with the patient denies any substance use/abuse other than described above. 2. Probable underlying obstructive sleep apnea. We will do a nocturnal pulse ox. I do recommend a formal outpatient sleep study arranged by his PCP upon discharge and follow-up. 3. Nicotine use/abuse as well as overuse of caffeine. Again counseling was done with the seems to be contributing factors. 4. Obesity. 5. Nicotine use/abuse in the form of smokeless tobacco. Quit smoking tobacco approximately a month ago. Plan: As described above. Please refer to orders for further planning. History of Present Illness Chief Complaint: Palpitations. Mild shortness of breath. Primary Care Provider: Marek Richard DO This is a 37-year-old male who has had intermittent palpitations in the past only lasting a couple seconds. He woke up around 830 this morning with significant palpitations and some mild shortness of breath especially with exertion. These were persistent. He therefore presented to the ER for further evaluation and treatment. Upon presentation emergency department EKG demonstrated atrial fibrillation with rapid ventricular response with a rate of 150-160. Troponin was negative. CBC and BMP were unremarkable. The patient received a liter of normal saline was given a bolus of IV Cardizem and commenced on a Cardizem drip. We are called admit the patient for further evaluation and treatment for new onset atrial fibrillation with rapid ventricular response. Patient's heart rate is persistent currently still in the 120s to 130s. Will continue to titrate the Cardizem drip as tolerated and necessary. Will commence the patient on a heparin drip for anticoagulation. We have ordered an echocardiogram. Will trend his troponins. Will check a TSH and a magnesium level. The patient does admit to drinking some alcohol on Thursday approximately 5 beers. He typically has 4-5 beers on the weekend but is not a daily drinker or a binge drinker. He quit smoking approximately 3 months ago. He still uses smokeless tobacco/snuff. He denies use of illicit street drugs. He does consume a significant amount of caffeine. This morning he had a red bull and 2 Mountain Dew's. Counseling was done in terms of caffeine and nicotine and atrial fibrillation. In addition it appears the patient probably has underlying sleep apnea. He states that his partner tells him that he snores and quits breathing continuously through the night. Allergies Allergy/AdvReac Type Severity Reaction Status Date / Time No Known Drug Allergies Allergy Verified 03/17/23 15:19 Home Medications Medication Instructions Recorded Confirmed Type ibuprofen 800 mg tablet 800 mg PO TID PRN pain #20 tabs 12/21/21 02/18/22 Rx prednisone 10 mg tablets in a dose 10 mg PO .COMPLEX #21 ea 03/17/23 03/17/23 Rx pack Past Med/Surg History Problem List (Updated 08/04/23 @ 11:10 by Ashutosh Oliva, PhD, DO) Atrial fibrillation with rapid ventricular response No significant past medical history Encounter for screening laboratory testing for severe acute respiratory syndrome coronavirus 2 (SARS-CoV-2) in asymptomatic patient Elevated BP without diagnosis of hypertension Medical History Dental abscess Surgical History H/O tooth extraction Hx of tonsillectomy Family History Mother Ovarian cancer Denies family history of Prostate cancer Breast cancer Lung cancer Colorectal cancer Social History Smoking Status: Former smoker Tobacco Type: Cigarettes Age Started Using Tobacco: 14; packs per day: 0.5; Second Hand Exposure: No; Do You Dip or Chew Tobacco: No; Hx Alcohol Use: Yes Alcohol type: beer Alcohol Intake Frequency: Monthly or Less Hx Substance Use: No Preferred Language: Romansh Communication Ability: Effective Visual Impairment: No Limitations Hearing Ability: Normal Cemetery Manager Required: No marital status: Single Current Living Situation: Family and Significant Other current occupational status: employed How many Children do You have: 4 Feels Safe at Home: Yes Childhood Exposure to Second-Hand Smoke: Yes caffeine: Yes Dental Care, Regularly: No Physical Activity Frequency: 3-4 Times per Week Seatbelt Use: always Sunscreen Use: No Review of Systems Review of Systems: A 10 point review of system was obtained and unless otherwise stated here or in history of present illness are negative and noncontributory to chief complaint. Physical Exam Physical Exam: In General: In general pleasant 37-year-old male who is alert and oriented x 3 at the time of my exam he states he is perceivable palpitations are much impr lucas with his rate down in the 120s to 130s. He is in no acute distress. He interacts appropriately pleasantly. HEENT: Normocephalic atraumatic pupils are equal round and reactive to light bilaterally. No scleral icterus no conjunctival injection external auditory canals are patent septum is in the midline nose is without discharge oral mucosa is pink and moist without lesion. NECK: Supple no rigidity no lymphadenopathy no thyromegaly no carotid bruits no JVD no masses. HEART: Irregular rate and rhythm consistent with atrial fibrillation with rapid ventricular response. I do not appreciate any rub or murmur. LUNGS: Clear to auscultation bilaterally and anteriorly with no evidence of adventitious sounds/wheezes rales or rhonchi. ABDOMEN: Soft nontender, no rebound, no peritoneal signs, positive bowel sounds, no appreciable organomegaly. EXTREMITIES: Intact, no peripheral cyanosis, clubbing. There is trace dependent lower extremity edema. 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 Strength is 5 out of 5 in extremities x4, no pathological reflexes. NEUROLOGICAL: Cranial nerves II through XII are grossly intact with no focal deficit elicited upon examination. No tremor. Results & Data Results & Data Vital Signs (Past 12 Hours) Vital Signs Temp Pulse Pulse Resp BP BP Pulse Ox 08/04/23 10:02 114 H 18 140/90 96 08/04/23 09:48 97 08/04/23 09:48 131 H 18 97 08/04/23 09:33 163 H 08/04/23 09:15 36 C L 92 H 20 158/132 H 97 O2 Del Method 08/04/23 10:02 Room Air 08/04/23 09:48 Room Air 08/04/23 09:48 Room Air 08/04/23 09:33 08/04/23 09:15 Room Air Code Status & VTE Plan Code Status Full code. I personally discussed with patient at the bedside today. VTE Prophylaxis Plan VTE Prophylaxis will be ordered: Yes PG Care Time/CCT Total # of Minutes Spent Total Time Spent with Patient: Total time spent is greater than 50% in coordination of care (as documented) at patient's floor/unit and/or counseling patient: Coding Level of Care Code 07668 INT INP/OBS CARE 3/75MIN Diagnoses Atrial fibrillation with rapid ventricular response I48.91
[2023-08-04] MEDS: HEPARIN SOD (PORCINE) 1000 UNIT/ML IV ONE ×2 (12:03→19:47)
[2023-08-04] MEDS: HEPARIN SODIUM/DEXTROSE 25,000 UNITS/500 ML BAG IV SCH (12:04)
[2023-08-04 12:23] LABS: Partial Thromboplastin Time 28 Seconds (21-31)
--- NOTE | 2023-08-04 12:56 | Electrocardiogram Report ---
Test Reason : Blood Pressure : / mmHG Vent. Rate : 166 BPM Atrial Rate : 000 BPM P-R Int : 000 ms QRS Dur : 090 ms QT Int : 254 ms P-R-T Axes : 000 077 -57 degrees QTc Int : 422 ms Atrial fibrillation with rapid ventricular response with premature ventricular or aberrantly conducte d complexes Marked ST abnormality, possible inferior subendocardial injury Abnormal ECG When compared with ECG of 08-FEB-2010 20:47, Atrial fibrillation has replaced Sinus rhythm Vent. rate has increased BY [address] now depressed in Inferior leads ST now depressed in Anterolateral leads Confirmed by Theron Gerber ([id number]) on 08/04/2023 12:55:59 PM Referred By: REFERRED SELF Confirmed By:Theron Gerber
[2023-08-04 13:21] LABS: Amphetamines+Metham, Urine Neg (Neg); Barbiturates, Urine Neg (Neg); Benzodiazepine, Urine Neg (Neg); Cocaine, Urine Neg (Neg); Fentanyl, Urine Neg (Neg); MDMA (Ecstacy), Urine Neg (Neg); Marijuana, Urine Neg (Neg); Methadone, Urine Neg (Neg); Opiate, Urine Pos (Neg); Phencyclidine, Urine Neg (Neg)
[2023-08-04 13:24] LABS: Thyroid Stimulating Hormone 1.637 uIu/ml (0.300-4.500)
--- NOTE | 2023-08-04 15:30 | XCELERA ---
[id number]
[2023-08-04] MEDS: STAT IV Infusion **Titration per Protocol STA (17:28)
[2023-08-04 19:04] LABS: ANTI-Xa, UFH(UnfractionatedHep < 0.10 IU/ml (0.3-0.7)
[2023-08-05 02:03] LABS: Basophils # (auto) 0.05 K/uL (0.00-0.20); Basophils % (auto) 0.4 %; Eosinophils # (auto) 0.37 K/uL (0.00-0.50); Eosinophils % (auto) 3.1 %; Hematocrit (blood only) 41.9 % (42.0-52.0); Hemoglobin 13.9 g/dl (14.0-18.0); Immature Granulocytes # (auto) 0.06 K/uL (0.01-0.20); Immature Granulocytes % (auto) 0.5 %; Lymphocytes # (auto) 3.59 K/uL (1.20-3.40); Lymphocytes % (auto) 30.6 %; Mean Corpuscular Hemoglobin 28.9 pg (25.0-34.0); Mean Corpuscular Hgb Conc 33.2 g/dL (32.0-36.0); Mean Corpuscular Volume 87.1 fL (80.0-100.0); Mean Platelet Volume 9.1 fL (9.4-12.4); Monocytes # (auto) 0.59 K/uL (0.11-0.59); Neutrophils # (auto) 7.09 K/uL (1.40-6.50); Neutrophils % (auto) 60.4 %; Platelet Count 325 K/uL (130-400); RDW Coefficient of Variation 13.1 % (11.5-14.5); RDW Standard Deviation 40.8 fL (36.4-46.3); Red Blood Count 4.81 M/uL (4.70-6.10); White Blood Count 11.75 K/ul (4.8-10.8)
[2023-08-05 02:12] LABS: Albumin Globulin Ratio 1.2 (0.9-2); Albumin Level 3.9 gm/dl (3.4-5.0); BUN Creatinine Ratio 13.8 (10-20); Bilirubin,Total 0.3 mg/dl (0.2-1.0); Calcium 8.6 mg/dl (8.6-10.3); Chol HDL Ratio 6.2 (0-5); Creatinine Clr Calc Pharmacy 163.4 ml/min; Est GFR (African American) 126.9 ml/min; Est GFR (Non-African American) 109.5 ml/min; Globulin 3.2 gm/dl (2.5-4.0); Potassium 3.8 mmol/L (3.5-5.1); Total Protein 7.1 gm/dl (6.0-8.3)
[2023-08-05 02:21] LABS: ANTI-Xa, UFH(UnfractionatedHep 0.13 IU/ml (0.3-0.7)
[2023-08-05] MEDS: HEPARIN SOD (PORCINE) 1000 UNIT/ML IV ONE (02:39)
[2023-08-05 09:32] LABS: ANTI-Xa, UFH(UnfractionatedHep 0.15 IU/ml (0.3-0.7)
[2023-08-05] MEDS: METOPROLOL TARTRATE 25 MG TAB PO SCH (09:57)
--- NOTE | 2023-08-05 12:53 | Cardiology Consultation ---
Date of Consultation August 05, 2023 Assessment & Plan (1) Atrial fibrillation with rapid ventricular response: -fortunately, he converted to sinus rhythm spontaneously. -serologic workup unremarkable. -agree with metoprolol tartrate. -CHADs Vasc score is 1 for hypertension, not age >65 or CHF. -therefore, long-term anticoagulation not indicated. -stable for hospital discharge. (2) Hypertension: -may need to increase metoprolol tartrate dose or add another agent. History of Present Illness Attending Physician: Raeann Sanchez MD History of Present Illness Mr. Malcolm is a 37-year-old male admitted yesterday with new onset atrial fibrillation. This consultation was ordered to assist in his cardiac management. The patient was in his usual state of health until approximately 0830 on the day of presentation. He had the abrupt onset of palpitations and shortness of breath, especially with exertion. After approximately 30 minutes of the symptoms, the patient presented to the emergency room for further care. On arrival here, he was found to be in atrial fibrillation with a rapid ventricu lar response. And spontaneously converted to sinus rhythm. The patient has never experienced sustained palpitations as described above. He has noted intermittent short-lived palpitations for many years. He was previously diagnosed with symptomatic PVCs. His medications reviewed in detail. Past medical and surgical history 1. Paroxysmal atrial fibrillation-July 2023 2. Hypertension 3. Probable obstructive sleep apnea Social history and lives with his and 4 children Smokes 1/2 pack of cigarettes daily for the last 23 years Occasional alcohol Family history No early coronary artery disease Review of systems A 10 point review of systems was undertaken and negative except that described above. Allergies Allergy/AdvReac Type Severity Reaction Status Date / Time No Known Drug Allergies Allergy 0 Verified 08/04/23 11:35 Home Medications Medication Instructions Recorded Confirmed Type aspirin 325 mg tablet 650 mg PO .TODAY 08/04/23 08/04/23 History ibuprofen 200 mg tablet 600 mg PO TID PRN Pain 08/04/23 08/04/23 History Patient History Medical History Dental abscess Surgical History H/O tooth extraction Hx of tonsillectomy Family History Mother Ovarian cancer Denies family history of Prostate cancer Breast cancer Lung cancer Colorectal cancer Social History Smoking Status: Former smoker Tobacco Type: Smokeless Tobacco (Dip or Chew) Age Started Using Tobacco: 14; packs per day: 0.5; Second Hand Exposure: No; Do You Dip or Chew Tobacco: Yes; Hx Alcohol Use: Yes Alcohol type: beer Alcohol Intake Frequency: Monthly or Less Hx Substance Use: No Preferred Language: Khmer Communication Ability: Effective Visual Impairment: No Limitations Hearing Ability: Normal 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 HEENT exam is negative. Neck is supple with full carotid upstrokes. There are no carotid bruits. Jugular venous pressure is flat at 90. There is no thyromegaly. Cardiovascular exam reveals a regular rhythm with a normal S1 and S2. No S3, S4, or murmurs are noted. Lungs are clear without rales, rhonchi, or wheezes. Abdomen is soft and nontender without bruits. Extremities reveal intact radial artery and posterior tibial pulses bilaterally. There is no peripheral edema. Results & Data Vital Signs (Past 12 Hours) Vital Signs Temp Pulse Pulse Resp BP Pulse Ox O2 Del Method 08/05/23 10:41 36.8 C 85 19 157/94 H 95 Room Air 08/05/23 07:37 70 08/05/23 07:09 36.7 C 70 19 144/85 H 98 Room Air 08/05/23 03:09 36.4 C L 69 16 149/84 H 96 Room Air Laboratory Results CBC notes hemoglobin 13.9, hematocrit 41.9, white count 11.7, and platelet count 325 1000. Electrolytes note a sodium of 138, potassium 3.8, chloride 104, bicarb 28, BUN 12, creatinine 0.87, a glucose of 113. Magnesium level is 2.0. Initial high sensitivity troponin was 11.6 with follow-up values of 28, 41.2, and 12.3. Diagnostic Findings Echocardiogram notes normal left ventricular systolic function without wall motion abnormalities. Left ventricular ejection fraction of 65-70%. There is borderline LVH. EKG notes normal sinus rhythm with a nonspecific T-wave a bnormality. Chest x-ray shows no acute disease. PG Care Time/CCT Total # of Minutes Spent Total Time Spent with Patient: Total time spent is greater than 50% in coordination of care (as documented) at patient's floor/unit and/or counseling patient: Coding Level of Care Code 65880 IN/OBS CONSULT LVL 4,60M Diagnoses Atrial fibrillation with rapid ventricular response I48.91 Hypertension I10
--- NOTE | 2023-08-05 13:18 | Discharge Summary ---
Discharge Summary Date of Service August 05, 2023 Principal Dx & Hospital Course #1 = Principal Diagnosis (1) Atrial fibrillation with rapid ventricular response: New onset atrial fibrillation with rapid ventricular response with rates in 160- 170s, associated SOB Patient received 1 dose of IV Cardizem and placed on a dilt drip in the ER. His rate has improved from 160s down to 120s to 130s. He spontanesouly converted to a sinus rhythm a few hours later. Heparin drip for anticoagulation was started but his CHADsVasC score is a 1 and he is a male so risk is low-in d/w Cardiology, will not anticoagulate at this time. COnsideration will be given for a pill in the pocket anticoagulation regimen-Cardiology said they can give samples of Xarelto from the office for this Serial trop peaked at 42 and is related to demand ischemia. Advised formal sleep study as outpt as he failed an overnight POx study here and has witnessed apneas. TSH normal ECHO normal Advised reduced alcohol consumption, nicotine consumption, and caffeine consumption UDS did show + for opioids and he was not given any opioids here in hospital so there is a chance he is misusing opioids as an outpt -this is not related to Afib but is notable Started metoprolol 25mg po bid for HTN and rate control F/u with Cardio as outpt Stable for dc to home (2) Hypertension: as above, BPs high, started metoprolol (3) Paroxysmal atrial fibrillation: as above (4) Nocturnal hypoxia: as above, needs formal sleep study ordered nocturnal O2 for home use which is pending approval from insurance at time of discharge (5) Obesity: advised increased exercise, weight loss (6) Transaminitis: AST and ALT mildly elevated he does binge drink EtOH but not on a regular basis also could have fatty liver due to obesity advised weight loss, reduction in EtOH use, and f/u with PCP Plan Dispo-dc to home Notes For Next Care Provider Follow LFTs as outpt Needs Cardiology f/u Needs formal sleep study Medication Changes From Visit Added metoprolol 25mg po bid Admission HPI Per Admitting Provider This is a 37-year-old male who has had intermittent palpitations in the past only lasting a couple seconds. He woke up around 830 this morning with significant palpitations and some mild shortness of breath especially with exertion. These were persistent. He therefore presented to the ER for further evaluation and treatment. Upon presentation emergency department EKG demonstrated atrial fibrillation with rapid ventricular response with a rate of 150-160. Troponin was negative. CBC and BMP were unremarkable. The patient received a liter of normal saline was given a bolus of IV Cardizem and commenced on a Cardizem drip. We are called admit the patient for further evaluation and treatment for new onset atrial fibrillation with rapid ventricular response. Patient's heart rate is persistent currently still in the 120s to 130s. Will continue to titrate the Cardizem drip as tolerated and necessary. Will commence the patient on a heparin drip for anticoagulation. We have ordered an echocardiogram. Will trend his troponins. Will check a TSH and a magnesium level. The patient does admit to drinking some alcohol on Thursday approximately 5 beers. He typically has 4-5 beers on the weekend but is not a daily drinker or a binge drinker. He quit smoking approximately 3 months ago. He still uses smokeless tobacco/snuff. He denies use of illicit street drugs. He does consume a significant amount of caffeine. This morning he had a red bull and 2 Mountain Dew's. Counseling was done in terms of caffeine and nicotine and atrial fibrillation. In addition it appears the patient probably has underlying sleep apnea. He states that his partner tells him that he snores and quits breathing continuously through the night. Discharge Exam Constitutional WD/WN, vitals as above + obese Respiratory normal respiratory effort, lungs clear to auscultation Cardiovascular RRR, no murmur, no edema Psychiatric A+Ox3, euthymic affect Updated Medication List Medication Instructions Recorded Confirmed Type aspirin 325 mg tablet 650 mg PO .TODAY 08/04/23 08/04/23 History ibuprofen 200 mg tablet 600 mg PO TID PRN Pain 08/04/23 08/04/23 History metoprolol tartrate 25 mg tablet 25 mg PO BID #60 tabs 08/05/23 Rx Hospital Stay Data Consultations 08/04/23 10:42 ED Decision to Admit Stat 08/05/23 09:18 Consult Cardiology Routine Diagnostic Imagining Performed ECHO Pending Results Patient Have Any Pending Studies at Discharge: No Discharge Instructions Given to Patient (Per Discharging Provider) You were admitted with a rapid, irregular heart rhythm called atrial fibrillation. You were given medication to slow down your heart rate and you spontaneously converted to a regular rhythm. Please continue to take the new medication called metoprolol to lower your blood pressure and keep your hear rate from going too fast if you go back into atrial fibrillation. You have low oxygen levels while you sleep and likely have obstructive sleep apnea. Nighttime oxygen was ordered for you as a temporary measure until you can have a formal sleep study ordered by your PCP. Treating your sleep apnea with a CPAP machine can help keep you from having atrial fibrillation, help with weight loss, and lower blood pressure. It can also help you feel more refreshed during the day. You should also avoid binge drinking alcohol-do not drink more than 3 drinks in one day as this can also lead to atrial fibrillation. You should follow up with the Bryologist and with your PCP within 2 weeks. Total Time Total Time Spent Total Time Spent (In Minutes): 35 min Total Time Includes: Examination of the Patient, Discharge Planning, Medication Reconciliation and Communication With Other Providers (Cardiology) Coding Level of Care Code 74237 INP/OBS DISCH >30 MIN Diagnoses Atrial fibrillation with rapid ventricular response I48.91 Hypertension I10 Paroxysmal atrial fibrillation I48.0 Nocturnal hypoxia G47.34 Obesity E66.9 Transaminitis R74.01
--- NOTE | 2023-08-05 16:10 | Electrocardiogram Report ---
Test Reason : Blood Pressure : / mmHG Vent. Rate : 084 BPM Atrial Rate : 084 BPM P-R Int : 152 ms QRS Dur : 104 ms QT Int : 388 ms P-R-T Axes : 044 071 076 degrees QTc Int : 458 ms Normal sinus rhythm Nonspecific T wave abnormality Abnormal ECG When compared with ECG of 04-AUG-2023 09:21, Sinus rhythm has replaced Atrial fibrillation Vent. rate has decreased BY [address] no longer depressed in Inferior leads ST no longer depressed in Anterolateral leads T wave inversion no longer evident in Inferior leads Nonspecific T wave abnormality, worse in Lateral leads Confirmed by Theron Gerber ([id number]) on 08/05/2023 4:10:08 PM Referred By: Ashutosh Oliva Confirmed By:Theron Gerber
[2023-08-07 15:32] LABS: Codeine Urine NEGATIVE ng/mL (<50); Hydrocodone Urine 1610 ng/mL (<50); Hydromor Urine 222 ng/mL (<50); Morphine Urine NEGATIVE ng/mL (<50); Norhydrocodone Conf Ur 680 ng/mL (<50); Noroxycodone Urine NEGATIVE ng/mL (<50); Oxycodone Urine NEGATIVE ng/mL (<50); Oxymorph Urine NEGATIVE ng/mL (<50)
== END 2023-08-05 14:07 | disposition home or self-care (01) | DRG 309 ==
LOC: ED 09:08 → 2S 11:04 → SUATTDRO 11:04 → 2S 14:06